=== PATIENT | male | born 1990 | race Caucasian/White ===

== ENCOUNTER 2018-04-29 18:51 | Emergency (ER) | payer MEDICAID ==
[2018-04-29] MEDS: LIDOCAINE 2% (MDV) 20 ML INJ INJ (19:31)
== END 2018-04-29 20:20 | disposition home or self-care (01) ==
LOC: FTE 18:51
DX: S61.511A Laceration without foreign body of right wrist, initial encounter (principal); W26.8XXA Contact with other sharp object(s), not elsewhere classified, initial encounter; Y92.9 Unspecified place or not applicable
CPT/HCPCS: 12002; 99282-25